=== PATIENT | male | born 1975 | race Caucasian/White ===

== ENCOUNTER 2017-03-30 17:06 | Emergency (ER) | payer MEDICAID, OTHER ==
[~2017-03-30] VITALS: Ht 177.8 cm; Wt 81.6 kg
[2017-03-30 17:54] LABS: Basophils # (auto) 0.1 uL; Basophils % (auto) 0.8 % (0.0-2.0); Eosinophils # (auto) 0.1 uL; Eosinophils % (auto) 1.4 % (0.0-7.0); Hematocrit 49.5 % (41.0-53.0); Hemoglobin 16.6 g/dL (13.5-17.5); Lymphocytes # (auto) 2.2 uL; Lymphocytes % (auto) 30.8 % (10.0-50.0); Mean Corpuscular Hemoglobin 31.6 pg (28.0-32.0); Mean Corpuscular Hgb Conc. 33.6 g/dL (32.0-36.0); Mean Corpuscular Volume 94.1 fL (80.0-100.0); Mean Platelet Volume 8.5 fL (7.4-10.4); Monocytes # (auto) 0.7 uL; Monocytes % (auto) 10.4 % (0.0-12.0); Neutrophils % (auto) 56.6 % (37.0-80.0); Platelet Count (auto) 244 10^3/uL (140-450); Red Cell Distribution Width 14.6 % (11.6-16.0)
[2017-03-30 18:12] LABS: Albumin 3.6 g/dL (3.4-5.0); BUN/Creatinine Ratio 13.6; Calcium 9.1 mg/dL (8.5-10.1); Potassium 3.8 mmol/L (3.5-5.1)
[2017-03-30 18:16] LABS: Bilirubin, Total 0.7 mg/dL (0.2-1.0); Total Protein 7.8 g/dL (6.4-8.2)
[2017-03-30 19:28] VITALS: BP 117/75
[2017-03-30] MEDS ORDERED: SODIUM CHLORIDE 0.9% 1,000 ML IV ONE ×2 (20:04)
== END 2017-03-30 22:30 | disposition home or self-care (01) ==
LOC: ER 17:06
DX: S46.912A Strain of unspecified muscle, fascia and tendon at shoulder and upper arm level, left arm, initial encounter (principal); R20.0 Anesthesia of skin; F12.10 Cannabis abuse, uncomplicated; F41.9 Anxiety disorder, unspecified; F17.210 Nicotine dependence, cigarettes, uncomplicated; X58.XXXA Exposure to other specified factors, initial encounter; Y93.89 Activity, other specified; Y99.8 Other external cause status; Y92.89 Other specified places as the place of occurrence of the external cause
CPT/HCPCS: 36415; 71020; 80053; 84484; 85025; 93005; 96360; 99285; J7030; 96361

== ENCOUNTER 2018-12-16 16:09 | Inpatient (IN) | payer SELFPAY ==
[~2018-12-16] VITALS: Ht 175.3 cm; Wt 74.7 kg
[2018-12-16 16:53] LABS: Basophils # (auto) 0 uL; Basophils % (auto) 0.8 % (0.0-2.0); Eosinophils # (auto) 0.1 uL; Eosinophils % (auto) 2.1 % (0.0-7.0); Hematocrit 48.7 % (41.0-53.0); Hemoglobin 16.4 g/dL (13.5-17.5); Lymphocytes # (auto) 1.8 uL; Lymphocytes % (auto) 27.4 % (10.0-50.0); Mean Corpuscular Hemoglobin 31.7 pg (28.0-32.0); Mean Corpuscular Hgb Conc. 33.7 g/dL (32.0-36.0); Monocytes # (auto) 0.9 uL; Monocytes % (auto) 13.4 % (0.0-12.0); Neutrophils # (auto) 3.6 uL; Neutrophils % (auto) 56.3 % (37.0-80.0); Platelet Count (auto) 276 10^3/uL (140-450); Red Blood Cells 5.18 10^6/uL (4.5-5.90); Red Cell Distribution Width 14.1 % (11.8-14.3); White Blood Cell 6.4 10^3/uL (4.4-10.8)
[2018-12-16 17:05] LABS: Albumin 3.8 g/dL (3.4-5.0); Calcium 8.8 mg/dL (8.5-10.1); Potassium 4.3 mmol/L (3.5-5.1)
[2018-12-16 17:09] LABS: BUN/Creatinine Ratio 17.8; Bilirubin, Total 0.6 mg/dL (0.2-1.0)
[2018-12-16] MEDS ORDERED: SODIUM CHLORIDE 0.9% 1,000 ML IV ONE ×2 (18:05)
[2018-12-16] MEDS ORDERED: CLINDAMYCIN 900MG IV 50 ML IV ONE (18:15)
[2018-12-16] MEDS ORDERED: PIPERACILLIN-TAZOB 3.375GM 100 ML IV ONE (18:15)
[2018-12-16] MEDS ORDERED: TEMAZEPAM 15 MG CAP PO PRN (22:15)
[2018-12-16] MEDS ORDERED: ONDANSETRON HCL 4 MG/2 ML VIAL IV PRN (22:15)
[2018-12-16] MEDS ORDERED: ACETAMINOPHEN 325 MG TAB PO PRN (22:15)
[2018-12-16 23:38] VITALS: BP 140/85
--- NOTE | 2018-12-16 23:38 | NUR ---
MS admit from ER AUGIE SAAVEDRA admitted to tele/MS. Patient oriented to Marge Peter RN primary RN, unit, room, bed, and unit policies regarding patient care and visiting hours. Patient weighed by bedscale and encouraged to call if they need something. All questions and concerns addressed, patient verbalized understanding. Bed is in lowest locked position with bed rails up x2 and call light is within reach of the patient.
[2018-12-17] MEDS ORDERED: NICOTINE 21MG/24 HR TOPICAL PATCH TD ONE
[2018-12-17] MEDS ORDERED: VANCOMYCIN PER PHARMACY 0 MG IV SCH
[2018-12-17] MEDS: HYDROcodone-ACET 5/325MG TAB PO PRN ×2 (00:06→19:31)
--- NOTE | 2018-12-17 00:10 | NUR ---
Patient refused second IV placement: After two attempts patient refused to have a second IV placed as a second access for antibiotic therapy. Educated patient about the need to start a second IV to administer other antibiotics ordered to treat infection, patient still refused stating "I dont want to be stuck anymore that hurt!". Will administer antibiotics on available IV on right hand that is patent and a 20 gauge.
[2018-12-17] MEDS ORDERED: VANCOMYCIN 1GM/250ML 250 ML IV ONE (00:15)
[2018-12-17 00:18] VITALS: BP 140/85
[2018-12-17] MEDS: cefTRIAXone 1GM/50ML D5W 50 ML IV SCH ×2 (03:11→09:34)
[2018-12-17 05:48] VITALS: BP_SYST 113; BP_SYST 119; BP_DIAS 65; BP_DIAS 73
[2018-12-17] MEDS ORDERED: CLINDAMYCIN 600MG IV 50 ML IV SCH (06:00)
[2018-12-17 06:35] LABS: Basophils # (auto) 0 uL; Eosinophils # (auto) 0.2 uL; Eosinophils % (auto) 3.2 % (0.0-7.0); Hematocrit 42.2 % (41.0-53.0); Lymphocytes # (auto) 1.6 uL; Lymphocytes % (auto) 30.8 % (10.0-50.0); Mean Corpuscular Hemoglobin 31.3 pg (28.0-32.0); Mean Corpuscular Hgb Conc. 33.1 g/dL (32.0-36.0); Mean Corpuscular Volume 94.4 fL (80.0-100.0); Monocytes # (auto) 0.8 uL; Neutrophils # (auto) 2.6 uL; Nucleated Red Blood Cells % 0.1 %; Platelet Count (auto) 240 10^3/uL (140-450); Red Blood Cells 4.47 10^6/uL (4.5-5.90); Red Cell Distribution Width 14.2 % (11.8-14.3); White Blood Cell 5.1 10^3/uL (4.4-10.8)
--- NOTE | 2018-12-17 07:50 | NUR ---
Patient in bed, oriented x4. No acute distress noted.
[2018-12-17 08:00] VITALS: BP 128/81
[2018-12-17] MEDS: FAMOTIDINE 20 MG TAB PO SCH ×2 (09:35→21:41)
[2018-12-17] MEDS: NICOTINE 21MG/24 HR TOPICAL PATCH TD SCH (09:35)
--- NOTE | 2018-12-17 10:02 | NUR ---
Dr. Herrera came over. ordered urine drug screen.
--- NOTE | 2018-12-17 10:30 | NUR ---
Specimen bottle provided for urine specimen collection.
[2018-12-17 12:00] VITALS: BP 130/72
[2018-12-17] MEDS: VANCOMYCIN 1GM/250ML 250 ML IV SCH (13:43)
[2018-12-17 16:00] VITALS: BP 131/78
[2018-12-17 17:58] LABS: Alcohol, Urine < 3.0 mg/dL (0-5); Amphetamine Screen, Urine POSITIVE (NEGATIVE); Barbiturate Scree,Urine NEGATIVE (NEGATIVE); Benzodiazephine Screen, Urine NEGATIVE (NEGATIVE); Cannabinoid Screen, Urine POSITIVE (NEGATIVE); Cocaine Screen, Urine NEGATIVE (NEGATIVE); Opiate Scree,Urine NEGATIVE (NEGATIVE); Phencyclidine Screen, Urine NEGATIVE (NEGATIVE)
[2018-12-17 17:59] LABS: Urine Amorphous Crystal MOD /hpf (None Seen); Urine Bacteria NONE SEEN /hpf (None Seen); Urine Blood Negative /uL (Negative); Urine WBC 1 /hpf (0 - 3)
--- NOTE | 2018-12-17 20:00 | NUR ---
OPENING NOTE RECEIVED REPORT FROM DAYSHIFT RN. ASSUMING ROLE OF CARE OF PATIENT AT THIS TIME. PATIENT SHOWING NO SIGN OF DISTRESS, SHORTNESS OF BREATH, BUT PATIENT STATES PAIN AT 5/10 FROM LEG SWELLING. PATIENT WILL BE GIVEN MEDICATION WHEN AVAILABLE PER PROTOCOL. PATIENT EDUCATED ON PLAN OF CARE FOR THE NIGHT. PATIENT VERBALIZED UNDERSTANDING. BED LOWERED, CALL LIGHT WITHIN REACH, AND PATIENT WILL BE ROUNDED ON EVERY HOUR AND NEEDED.
[2018-12-17 22:00] VITALS: BP 138/77
[2018-12-18] MEDS: VANCOMYCIN 1GM/250ML 250 ML IV SCH ×3 (00:42→13:49)
[2018-12-18 05:00] VITALS: BP 122/80
[2018-12-18 06:50] LABS: Albumin 2.9 g/dL (3.4-5.0); Calcium 8.1 mg/dL (8.5-10.1); Potassium 4.3 mmol/L (3.5-5.1)
[2018-12-18 06:55] LABS: BUN/Creatinine Ratio 13.2; Bilirubin, Total 0.5 mg/dL (0.2-1.0); Total Protein 6.6 g/dL (6.4-8.2)
--- NOTE | 2018-12-18 08:05 | NUR ---
Patient asleep, no acute distress noted.
[2018-12-18 09:00] VITALS: BP 102/71
[2018-12-18] MEDS: FAMOTIDINE 20 MG TAB PO SCH (09:42)
[2018-12-18] MEDS: NICOTINE 21MG/24 HR TOPICAL PATCH TD SCH (09:43)
[2018-12-18] MEDS: cefTRIAXone 1GM/50ML D5W 50 ML IV SCH (09:43)
[2018-12-18 12:32] VITALS: BP 116/72
--- NOTE | 2018-12-18 14:05 | NUR ---
Patient stated it's okay to take a photo of his left foot for reference. Photo taken of the left foot. Wound care form placed on the Wound Care tray. Camera returned to Monalisa.
--- NOTE | 2018-12-18 14:05 | NUR ---
Patient insisted he wants to go home, refused to wait for the hospitalist to come over. Risks and benefits explained, patient insisted of leaving the hospital against medical advice (AMA). Patient signed the AMA form. Will inform the Charge Nurse and the Hospitalist.
--- NOTE | 2018-12-18 14:20 | NUR ---
AMA Note AUGIE SAAVEDRA states he wants to leave the hospital Against Medical Advice (AMA). Patient encouraged to stay for further treatment/stabilization. Dr. Paola TINAJERO notified of patient's wishes. Patient advised of the risks and benefits of leaving AMA. Patient verbalized understanding. IV line removed, IV catheter intact, pressure dressing applied. Photo of the left foot taken with patient's consent for reference. Patient encouraged to return to the ER if symptoms do not improve or worsen.
--- NOTE | 2018-12-18 14:50 | NUR ---
Paged Dr. Guevara.
--- NOTE | 2018-12-18 15:18 | NUR ---
Dr. Guevara called back. made aware patient left the hospital against medical advice (AMA).
== END 2018-12-18 14:20 | disposition left against medical advice (07) | DRG 603 ==
LOC: ER 16:09 → OVERFLOW 22:46 → EAST 23:22
PROVIDERS: ADMIT Nurse Practitioner; ATTEND Internal Medicine
DX: L03.116 Cellulitis of left lower limb (principal); R65.10 Systemic inflammatory response syndrome (SIRS) of non-infectious origin without acute organ dysfunction; F12.90 Cannabis use, unspecified, uncomplicated; F17.210 Nicotine dependence, cigarettes, uncomplicated; Z53.21 Procedure and treatment not carried out due to patient leaving prior to being seen by health care provider
CPT/HCPCS: 36415; 71045; 73700; 80053; 80202; 80307; 81001; 83605; 83880; 84550; 85025; 85652; 87040; 93971; 96361; 96365; 96367; G0378; J0696; J2543; J3490

== ENCOUNTER 2021-10-23 02:01 | Inpatient (IN) | payer MEDICAID ==
[~2021-10-23] VITALS: Ht 175.3 cm; Wt 77.6 kg
[2021-10-23 03:26] LABS: Basophils # (auto) 0.1 10 ^3/uL (0-0.2); Eosinophils # (auto) 0.3 10 ^3/uL (0-0.8); Eosinophils % (auto) 4.5 % (0.0-7.0); Hematocrit 50.2 % (41.0-53.0); Hemoglobin 16.9 g/dL (13.5-17.5); Lymphocytes # (auto) 1.8 10 ^3/uL (0.4-5.4); Lymphocytes % (auto) 28.7 % (10.0-50.0); Mean Corpuscular Hemoglobin 31.9 pg (28.0-32.0); Mean Corpuscular Hgb Conc. 33.7 g/dL (32.0-36.0); Mean Corpuscular Volume 94.7 fL (80.0-100.0); Monocytes # (auto) 0.8 10 ^3/uL (0-1.3); Neutrophils # (auto) 3.4 10 ^3/uL (1.6-8.6); Neutrophils % (auto) 53.8 % (37.0-80.0); Red Cell Distribution Width 13.9 % (11.8-14.3); White Blood Cell 6.3 10^3/uL (4.4-10.8)
[2021-10-23 04:18] LABS: Albumin 3.7 g/dL (3.4-5.0); Calcium 8.5 mg/dL (8.5-10.1); Magnesium 2.8 mg/dL (1.6-2.6); Potassium 4.2 mmol/L (3.5-5.1)
[2021-10-23 04:23] LABS: BUN/Creatinine Ratio 14.4; Bilirubin, Total 0.6 mg/dL (0.2-1.0); Total Protein 7.6 g/dL (6.4-8.2)
[2021-10-23] MEDS ORDERED: ASPirin 325 MG TAB PO ONE (04:45)
[2021-10-23] MEDS ORDERED: TEMAZEPAM 15 MG CAP PO PRN (06:30)
[2021-10-23] MEDS ORDERED: MORPHINE SULFATE INJECTION 2 MG/ML SYRG IV PRN (06:30)
[2021-10-23] MEDS ORDERED: NITROGLYCERIN 0.4 MG SL TAB SL PRN (06:30)
[2021-10-23] MEDS ORDERED: ACETAMINOPHEN 325 MG TAB PO PRN (06:30)
[2021-10-23] MEDS ORDERED: ONDANSETRON HCL 4 MG/2 ML VIAL IV PRN (06:30)
[2021-10-23] MEDS: PANTOPRAZOLE 40 MG TAB PO SCH (09:35)
[2021-10-23] MEDS ORDERED: ENOXAPARIN SOD 80 MG/0.8ML SYRINGE SC ONE (10:45)
[2021-10-23] MEDS: ATORVASTATIN 20 MG TAB PO SCH ×2 (10:45→21:49)
[2021-10-23] MEDS ORDERED: CLOPIDOGREL 300 MG TAB PO ONE (10:45)
[2021-10-23 17:00] VITALS: BP 113/76
[2021-10-23] MEDS ORDERED: HYDROcodone-ACET 5/325MG TAB PO PRN (21:00)
[2021-10-23 22:00] VITALS: BP 113/76
[2021-10-23] MEDS ORDERED: ATORVASTATIN 20 MG TAB PO SCH (22:00)
[2021-10-23] MEDS ORDERED: ENOXAPARIN SOD 80 MG/0.8ML SYRINGE SC SCH (22:00)
[2021-10-24 05:59] LABS: Basophils # (auto) 0.1 10 ^3/uL (0-0.2); Basophils % (auto) 0.9 % (0.0-2.0); Eosinophils # (auto) 0.3 10 ^3/uL (0-0.8); Eosinophils % (auto) 4.4 % (0.0-7.0); Hematocrit 50.2 % (41.0-53.0); Hemoglobin 16.8 g/dL (13.5-17.5); Lymphocytes # (auto) 2.4 10 ^3/uL (0.4-5.4); Lymphocytes % (auto) 37.5 % (10.0-50.0); Mean Corpuscular Hemoglobin 31.9 pg (28.0-32.0); Mean Corpuscular Hgb Conc. 33.5 g/dL (32.0-36.0); Mean Corpuscular Volume 95.2 fL (80.0-100.0); Monocytes # (auto) 0.9 10 ^3/uL (0-1.3); Monocytes % (auto) 14.6 % (0.0-12.0); Neutrophils # (auto) 2.7 10 ^3/uL (1.6-8.6); Neutrophils % (auto) 42.6 % (37.0-80.0); Nucleated Red Blood Cells % 0.1 %; Red Blood Cells 5.28 10^6/uL (4.5-5.90); Red Cell Distribution Width 14.1 % (11.8-14.3); White Blood Cell 6.4 10^3/uL (4.4-10.8)
[2021-10-24 06:15] LABS: BUN/Creatinine Ratio 13.7; Calcium 8.8 mg/dL (8.5-10.1); Potassium 5.1 mmol/L (3.5-5.1)
[2021-10-24 08:07] VITALS: BP 110/76
[2021-10-24] MEDS: PANTOPRAZOLE 40 MG TAB PO SCH (09:08)
[2021-10-24] MEDS ORDERED: ASPirin 81 mg TAB PO SCH ×2 (10:00)
[2021-10-24] MEDS ORDERED: DOXY-112 PO (10:51)
[2021-10-24] MEDS ORDERED: DOXYCYCLINE 100 MG TAB/CAP PO ONE (11:00)
[2021-10-24] MEDS ORDERED: DOXYCYCLINE 100 MG TAB/CAP PO SCH (22:00)
== END 2021-10-24 10:00 | disposition left against medical advice (07) | DRG 282 ==
LOC: ER 02:01 → TELE 06:23 → TELE-WESTW 15:10
PROVIDERS: ADMIT Nurse Practitioner; ATTEND Internal Medicine Nephrology
DX: I21.A1 Myocardial infarction type 2 (principal); J44.9 Chronic obstructive pulmonary disease, unspecified; I20.0 Unstable angina; M25.511 Pain in right shoulder; Z20.822 Contact with and (suspected) exposure to COVID-19; Z53.29 Procedure and treatment not carried out because of patient's decision for other reasons; F17.210 Nicotine dependence, cigarettes, uncomplicated; F41.9 Anxiety disorder, unspecified; N18.31 Chronic kidney disease, stage 3a; Z82.5 Family history of asthma and other chronic lower respiratory diseases
CPT/HCPCS: 36415; 71045; 73200; 80048; 80053; 83735; 83880; 84484; 85025; 85379; 87426; 93005; 93306; 96372; G0378

== ENCOUNTER 2022-02-08 23:55 | Emergency (ER) | payer MEDICAID ==
[~2022-02-08] VITALS: Ht 175.3 cm; Wt 77.1 kg
[~2022-02-08 23:55] MED LIST: DOXY-112 PO
[2022-02-08 23:56] VITALS: BP 140/88
== END 2022-02-09 15:05 | disposition left against medical advice (07) ==
LOC: ER 23:59
DX: K08.89 Other specified disorders of teeth and supporting structures (principal); Z53.21 Procedure and treatment not carried out due to patient leaving prior to being seen by health care provider